=== PATIENT | female | born 1985 | race Caucasian/White ===

== ENCOUNTER 2024-11-17 03:10 | Emergency (ER) | payer OTHER, SELFPAY ==
[2024-11-17 03:17] VITALS: BP 136/106; PULSE 93; RESP 24; TEMP 36.1; O2SAT 99; BMI 29.0
[2024-11-17 03:46] LABS: MANUAL DIFF FLAG NO
[2024-11-17 03:48] LABS: Hematocrit 39.3 % (37.0-47.0); Hemoglobin 14.0 g/dl (12.0-16.0); Imm Gran Abs Auto 0.04 X10*3/uL (0.00-0.03); Imm Gran Pct Auto 0.3 % (0.0-0.4); Lymphocytes Absolute Auto 1.9 X10*3/uL (1.2-4.9); Mean Corpuscular HGB Conc 35.6 g/dl (31.0-35.0); Mean Corpuscular Hemoglobin 29.1 pg (27.0-33.0); Mean Corpuscular Volume 81.7 fL (80.0-98.0); NRBC Abs Auto 0.000 X10*3/uL (0.0-0.012); NRBC Pct Auto 0.0 /100WBC (0.0-0.2); Platelet Count 350 X10*3/uL (160-400); Red Blood Count 4.81 X10*6/uL (4.20-5.50); White Blood Count 12.4 X10*3/uL (4.8-10.8)
[2024-11-17 04:05] LABS: Alanine Aminotransferase 26 U/L (0-31); Albumin Level 5.0 g/dL (3.5-5.0); Alkaline Phosphatase 78 U/L (39-117); Anion Gap 17 (12-20); Aspartate Amino Transferase 26 U/L (5-31); Blood Urea Nitrogen 13 mg/dL (9-16); Calcium 9.1 mg/dL (8.4-10.2); Carbon Dioxide 21 mmol/L (22-29); Chloride 105 mmol/L (96-108); Creatinine Clr Calc Pharmacy 99.5; Estimated Glomerular Filt Rate > 60; Lipase 67 U/L (8-78); Potassium 3.4 mmol/L (3.3-5.1); Sodium 140 mmol/L (135-145); Total Protein 8.3 g/dL (6.5-8.0)
--- NOTE | 2024-11-17 04:59 | ED.NAVMDI ---
HPI - Nausea/Vomiting/Diarrhea General Chief complaint: Nausea/Vomiting/Diarrhea Stated complaint: vomiting Time Seen by Provider: 11/17/24 04:57 Source: patient and old records reviewed Mode of arrival: ambulatory Limitations: no limitations History of Present Illness ED Provider: JESI GUILLAUME Narrative: 39 yo female with pre-HTN who has taken Wegovy in the past and done well. She notes she was off of it for a while but started to gain back weight. She took her first shot 1mg on Wednesday. She started to feel sick then and on Wednesday was full blown vomiting, nausea, epugastric pain. She has hx of prior cholecystectomy. She denies diarrhea/GIB symptoms. She has never had this before even with THC use or prior wegovy. MD elicited complaint: nausea, vomiting and abdominal pain Pertinent past history: other Onset (ago): day(s) (Wednesday) Associated nausea: Yes Associated abdominal pain: Yes Location of pain: epigastric Pain consistency: constant Severity: moderate Quality: aching Exacerbating factors: eating and vomiting Relieving factors: none Context: other Associated symptoms: nausea/vomiting Related Data Previous Rx's ?Medication ?Instructions ?Recorded ondansetron 4 mg disintegrating 4 mg PO Q8H PRN nausea and 11/17/24 tablet vomiting #20 tabs Allergies Allergy/AdvReac Type Severity Reaction Status Date / Time No Known Allergies Allergy Verified 11/17/24 03:19 Review of Systems Review of Systems: Constitutional : No Weight loss, No Fever, No Chills ENT/Mouth : No sore throat, No Rhinorrhea Eyes: No Swelling, No Redness Cardiovascular : No Chest Pain, No SOB, NoEdema Respiratory : No Cough, No Sputum, No Wheezing Gastrointestinal : Positive Nausea, Positive Vomiting, no Diarrhea, positive abdominal Pain, No Hematochezia, No Melena Genitourinary : No Dysuria, No Urinary Frequency, No Hematuria, No Urgency Musculoskeletal : No joint pain, No Myalgias, No Joint Swelling Skin : No Skin Lesions, No rash Neuro : No Weakness, No Numbness, No Dizziness, No Headache Psych : No Anxiety/Panic, No Depression Heme/Lymph: No Bruising, No Lymphadenopathy Endocrine : No Polyuria, No Polydipsia All other systems reviewed and are negative. Gastrointestinal: Gastrointestinal: Reports nausea PMFSH Past Medical History Attestation statement: The following information was validated with the patient. Source: old records reviewed Surgical History (Updated 11/17/24 @ 05:49 by Sherron Burciaga DO) S/P cholecystectomy Social History Social History (Updated 11/17/24 @ 05:49 by Sherron Burciaga DO) Patient Tobacco Use Status: Never used Tobacco Substance Use Type: Marijuana Advance Directives: Yes Advance Directives Information Provided: Yes Advance Directives on File: No Physical Exam Vital Signs: Vital Signs: Last Vital Signs Temp 97 F 11/17/24 03:17 Pulse 93 11/17/24 03:17 Resp 24 H 11/17/24 03:17 BP 136/106 H 11/17/24 03:17 Pulse Ox 99 11/17/24 03:17 O2 Del Method Room Air 11/17/24 03:17 BMI result Body Mass Index 29.0 Appearance: Alert. Oriented X3. active vomiting mild acute distress. Eyes: Pupils equal, round and reactive to light. ENT: Pharynx normal. Neck: Normal inspection. Neck supple. CVS: Normal heart rate and rhythm. Pulses normal. Respiratory: No respiratory distress. Breath sounds normal. Abdomen: Soft and mild epigastric ttp no rebound or guarding Skin: Skin warm and dry. Normal skin color. Extremities: No lower extremity edema. Neuro: Oriented X 3. No motor deficit. No sensory deficit. CN2-12 intact Medications Administered Discontinued Medications Generic Name Dose Route Start Last Admin Trade Name Freq PRN Reason Stop Dose Admin Diphenhydramine HCl 25 mg 11/17/24 04:59 11/17/24 05:25 Diphenhydramine Hcl 50 Mg/Ml Vial IVPUSH 11/17/24 05:00 25 mg ONCE ONE Administration Lactated Ringer's 1,000 mls @ 999 mls/hr 11/17/24 04:59 11/17/24 05:25 Lr IV 11/17/24 05:59 999 mls/hr .Q1H1M ONE Administration Prochlorperazine Edisylate 10 mg 11/17/24 04:59 11/17/24 05:25 Prochlorperazine Edisylate 10 Mg/2 Ml Vial IVPUSH 11/17/24 05:00 10 mg ONCE ONE Administration Medical Decision Making Medical Decision Making MDM Narrative: 39 yo female with PMH of pre - HTN who has hx of tolerating Wegovy in the past but never had n/v and pain like this. She has prior cholecystectomy. At this time symptoms started after Wegovy. Will obtain labs, LFTs, lipase - start on IVF and supportive medications. If lab derangement will obtain imaging though I suspect this is due to her Wegovy. Differential Diagnosis Differential Diagnoses: The differential diagnosis associated with the presentation includes gastritis, gastroparesis, med reaction Admission/Observation Consideration of admission/observation: Escalation of care including admission/observation considered feels better able to tolerate PO Lab Data MDM Lab Attestation statement: I reviewed the patient's lab results. 11/17/24 03:42 11/17/24 03:42 Labs: Lab Results 11/17/24 Range/Units 03:42 WBC 12.4 H (4.8-10.8) X10*3/uL RBC 4.81 (4.20-5.50) X10*6/uL Hgb 14.0 (12.0-16.0) g/dl Hct 39.3 (37.0-47.0) % MCV 81.7 (80.0-98.0) fL MCH 29.1 (27.0-33.0) pg MCHC 35.6 H (31.0-35.0) g/dl RDW 13.2 (11.0-16.0) % Plt Count 350 (160-400) X10*3/uL MPV 9.6 (9.4-12.3) fL Immature Gran % (Auto) 0.3 (0.0-0.4) % Neut % (Auto) 77.9 H (45-73) % Lymph % (Auto) 15.1 L (20-40) % [place] % (Auto) 6.2 (2-11) % Eos % (Auto) 0.3 (0-4) % Baso % (Auto) 0.2 (0-2) % Lymph # (Auto) 1.9 (1.2-4.9) X10*3/uL [place] # (Auto) 0.8 (0.1-1.2) X10*3/uL Eos # (Auto) 0.0 (0.0-0.4) X10*3/uL Baso # (Auto) 0.0 (0.0-0.2) X10*3/uL Abs Immat Gran (auto) 0.04 H (0.00-0.03) X10*3/uL Absolute Neuts (auto) 9.7 H (2.0-8.3) x10*3/uL Absolute Nucleated RBC 0.000 (0.0-0.012) X10*3/uL Nucleated RBC % (auto) 0.0 (0.0-0.2) /100WBC Sodium 140 (135-145) mmol/L Potassium 3.4 (3.3-5.1) mmol/L Chloride 105 (96-108) mmol/L Carbon Dioxide 21 L (22-29) mmol/L Anion Gap 17 (12-20) BUN 13 (9-16) mg/dL Creatinine 0.74 (0.5-1.4) mg/dL Estim Creat Clear Calc 99.5 Estimated GFR > 60 Random Glucose 125 H (60-115) mg/dL Calcium 9.1 (8.4-10.2) mg/dL Total Bilirubin 0.8 (0.0-1.0) mg/dL AST 26 (5-31) U/L ALT 26 (0-31) U/L Alkaline Phosphatase 78 (39-117) U/L Total Protein 8.3 H (6.5-8.0) g/dL Albumin 5.0 (3.5-5.0) g/dL Lipase 67 (8-78) U/L External Record Review External record reviewed: Outpatient record Prescription Management I considered prescription management with: Other Discharge Plan Discharge Clinical Impression: Nausea & vomiting Qualifiers: Vomiting type: unspecified Qualified Code(s): R11.2 - Nausea with vomiting, unspecified Patient Disposition: Home, Self-Care Instructions: Acute Nausea and Vomiting (ED) Additional Instructions: your labs are reassuring please rest and stay hydrated return for worsening pain, vomiting, unable to eat or drink I would talk to your Wegovy prescriber about your illness bland diet and liquids for 48 hours Prescriptions: New ondansetron 4 mg tablet,disintegrating 4 mg PO Q8H PRN (Reason: nausea and vomiting) Qty: 20 0RF Stand Alone Forms: Work/School Release Print Language: [place]
[2024-11-17] MEDS: Lactated Ringers 1,000 ML 999 ML IV (05:25)
--- NOTE | 2024-11-17 05:32 | PC.NURSE ---
IV established, pt medicated per JUN. Pt resting in bed at this time.
[2024-11-17 07:59] VITALS: BP 139/78; PULSE 78; RESP 16; TEMP 36.7; O2SAT 98
[2024-11-17 08:29] VITALS: BP 139/78; PULSE 78; RESP 16; TEMP 36.7; O2SAT 98
== END 2024-11-17 08:30 | disposition home or self-care (01) ==
PROVIDERS: Emergency Provider Emergency Medicine; PCP Nurse Practitioner Family
DX: R11.2 Nausea with vomiting, unspecified (principal); R10.13 Epigastric pain
CPT/HCPCS: 36415; 80053; 83690; 85025; 96361; 96374; 96375; 99283; 99284; J0737; J1200; J7120